=== PATIENT | male | born 1955 | race Two or more races ===

== ENCOUNTER 2019-05-02 19:38 | Emergency (ER) | payer MEDICAID ==
[~2019-05-02] VITALS: Ht 167.6 cm; Wt 78.0 kg
[2019-05-03] MEDS ORDERED: SULFACETAMIDE SODIUM 10% OPHTH DROPS 15ML BOTHEYE STA (00:38)
[2019-05-03] MEDS ORDERED: SODIUM CHLORIDE 0.9% 1,000 ML IV ONE (00:38)
[2019-05-03] MEDS ORDERED: LORAZEPAM 2MG/ML CPJ IV ONE (00:45)
[2019-05-03 02:05] LABS: BASOPHILS % 0.4 % (0.0-2.0); EOSINOPHILS % 0.3 % (0.0-5.0); HEMATOCRIT. 49.7 % (42.0-52.0); HEMOGLOBIN. 17.5 g/dL (14.0-18.0); MEAN CORPUSCULAR HEMOGLOBIN 32.6 pg (28.0-32.0); MEAN CORPUSCULAR VOLUME 92.8 fL (80.0-94.0); MEAN PLATELET VOLUME 7.8 fl (7.4-10.4); MONOCYTES % 7.1 % (2.0-8.0); NEUTROPHILS % 81.2 % (40.0-76.0); PLATELET 190 x1000/uL (130-400); RED BLOOD CELL COUNT 5.36 mill/uL (4.7-6.1); RED CELL DISTRIBUTION WIDTH 12.8 % (11.6-14.6)
[2019-05-03 02:14] LABS: INR 1.1; PARTIAL THROMBOPLASTIN TIME 29.9 sec (23.4-31.0); PROTHROMBIN TIME 11.5 sec (9.6-11.0)
[2019-05-03 02:17] LABS: CHLORIDE 102 mEq/L (98-107)
[2019-05-03 02:23] LABS: ETHANOL BLOOD < 10 mg/dL
[2019-05-03] MEDS ORDERED: LEVOFLOXACIN 750MG PREMIX 150 ML IV ONE (03:15)
[2019-05-03] MEDS ORDERED: ASPIRIN 325MG EC TABLET PO ONE (05:45)
[2019-05-03 08:39] VITALS: BP 120/79
== END 2019-05-03 09:00 | disposition left against medical advice (07) ==
LOC: ER 19:38 → CANBEDREQ 05-03 10:16
DX: F15.10 Other stimulant abuse, uncomplicated (principal); B99.9 Unspecified infectious disease; H10.89 Other conjunctivitis; R25.1 Tremor, unspecified; R20.0 Anesthesia of skin; F17.290 Nicotine dependence, other tobacco product, uncomplicated; Z93.3 Colostomy status
CPT/HCPCS: 36415; 70450; 71045; 80053; 80320; 83605; 83735; 83880; 84484; 85025; 85610; 85730; 87040; 93005; 96365; 96366; 96375; 99284; J1956; J2060; J7030; G0480

== ENCOUNTER 2024-11-13 00:07 | Emergency (ER) | payer MEDICAID, OTHER ==
[~2024-11-13] VITALS: Ht 170.2 cm; Wt 78.0 kg
[~2024-11-13 00:07] MED LIST: METF-416 PO
[2024-11-13 00:20] VITALS: O2SAT 98
[2024-11-13 02:33] LABS: BASOPHILS % 0.6 % (0.0-2.0); EOSINOPHILS % 0.6 % (0.0-5.0); HEMATOCRIT. 51.4 % (42.0-52.0); HEMOGLOBIN. 17.3 g/dL (14.0-18.0); LYMPHOCYTES % 12.2 % (20.0-50.0); MONOCYTES % 9.0 % (2.0-8.0); NEUTROPHILS % 77.6 % (40.0-76.0); RED BLOOD CELL COUNT 5.39 mill/uL (4.7-6.1); RED CELL DISTRIBUTION WIDTH 14.2 % (11.6-14.6)
[2024-11-13 02:45] LABS: CREATININE 1.5 mg/dL (0.6-1.3); UREA NITROGEN BLOOD 18.0 mg/dL (9-23)
[2024-11-13 02:54] LABS: MEAN PLATELET VOLUME 7.9 fl (7.4-10.4)
[2024-11-13 02:55] LABS: PLATELET 191 x1000/uL (130-400)
[2024-11-13 05:40] VITALS: BP 120/68; PULSE 68; RESP 18; TEMP 37.1; O2SAT 98
== END 2024-11-13 05:43 | disposition home or self-care (01) ==
LOC: ER 00:07
DX: R10.30 Lower abdominal pain, unspecified (principal); R51.9 Headache, unspecified; E11.9 Type 2 diabetes mellitus without complications; I49.9 Cardiac arrhythmia, unspecified; Z98.890 Other specified postprocedural states
CPT/HCPCS: 36415; 71045; 74018; 80048; 85025; 93005; 99284